=== PATIENT | female | born 1985 ===

== ENCOUNTER 2022-04-03 11:50 | Inpatient (IN) | payer BC, OTHER ==
[2022-04-03] MEDS ORDERED: OXYTOCIN 10 UNITS/ML VIAL ONE ×2 (12:02→12:54)
[2022-04-03] MEDS ORDERED: OXYTOCIN 20 UNITS in 0.9% NS 20 UNIT/1,000 ML INFUS.BAG IV ONE ×2 (12:18→12:54)
[2022-04-03] MEDS ORDERED: oxyCODONE HCL 5 MG TABLET ONE (12:56)
[2022-04-03] MEDS ORDERED: ACETAMINOPHEN 325 MG TABLET (FP) ONE (12:57)
[2022-04-03] MEDS ORDERED: WITCH HAZEL 50% (TUCKS) 40 PAD/JAR PAD TP PRN (13:15)
[2022-04-03] MEDS ORDERED: METHYLERGONOVINE MALEATE 0.2 MG/1 ML AMP IM PRN (13:15)
[2022-04-03] MEDS ORDERED: BENZOCAINE 28 GM HEMORRHOIDAL OINTMENT TP PRN (13:15)
[2022-04-03] MEDS ORDERED: BISACODYL 10 MG SUPP.RECT RC PRN (13:15)
[2022-04-03] MEDS ORDERED: OXYTOCIN 20 UNITS in 0.9% NS 20 UNIT/1,000 ML INFUS.BAG IV SCH (13:15)
[2022-04-03] MEDS ORDERED: ACETAMINOPHEN 325 MG TABLET (FP) PO PRN (13:15)
[2022-04-03] MEDS ORDERED: BENZOCAINE 20% 57 GM BOTTLE TP PRN (13:15)
[2022-04-03] MEDS: oxyCODONE HCL 5 MG TABLET PO PRN ×2 (13:19→19:30)
[2022-04-03 13:55] LABS: HEMATOCRIT 32.8 % (32.4-45.2); HEMOGLOBIN 10.9 GM/dL (10.7-15.3); MCH 29.9 pg (25.7-33.7); MCHC 33.2 g/dl (32.0-36.0); MEAN CELL VOLUME 90.1 fl (80-96); MEAN PLT VOLUME 7.7 fl (7.5-11.1); PLATELET COUNT 281 10^3/uL (134-434); RBC 3.65 M/mm3 (3.60-5.2); RDW 14.4 % (11.6-15.6); WHITE BLOOD COUNT 20.5 K/mm3 (4.0-10.0)
[2022-04-03 13:58] LABS: CALCIUM 8.6 mg/dL (8.5-10.1)
[2022-04-03 14:00] LABS: BLOOD UREA NITROGEN 6.4 mg/dL (7-18)
[2022-04-03 14:02] LABS: CREATININE 0.4 mg/dL (0.55-1.3)
[2022-04-03 14:03] LABS: INR 0.94 (0.83-1.09); PROTHROMBIN TIME (PATIENT) 10.8 SEC (9.7-13.0)
[2022-04-03 14:06] LABS: ACTIVATED PTT 26.1 SECONDS (25.2-36.5)
[2022-04-03 14:09] VITALS: BMI 29.6
[2022-04-03] MEDS ORDERED: CARBOPROST TROMETHAMINE 250 MCG/ML AMPUL IM ONE (14:15)
[2022-04-03 14:53] LABS: HIV INTERPRETATION NEGATIVE (NEGATIVE)
[2022-04-03 15:30] LABS: ANISOCYTOSIS 2+; MACROCYTOSIS 2+; OVALOCYTE 1+
[2022-04-03] MEDS ORDERED: IBUPROFEN 600 MG TABLET (FP) PO ONE (15:49)
[2022-04-03] MEDS: IBUPROFEN 600 MG TABLET (FP) PO PRN ×2 (15:50→23:56)
[2022-04-04] MEDS: oxyCODONE HCL 5 MG TABLET PO PRN ×3 (06:18→23:09)
[2022-04-04] MEDS: IBUPROFEN 600 MG TABLET (FP) PO PRN ×2 (08:04→19:19)
[2022-04-04 09:29] LABS: BASO % 0.3 % (0-2.0); EOS % 0.7 % (0-4.5); HEMATOCRIT 25.5 % (32.4-45.2); HEMOGLOBIN 8.5 GM/dL (10.7-15.3); LYMPH % 20.5 % (8-40); MCH 30.2 pg (25.7-33.7); MCHC 33.6 g/dl (32.0-36.0); MEAN CELL VOLUME 90.1 fl (80-96); MEAN PLT VOLUME 7.5 fl (7.5-11.1); MONO % 6.3 % (3.8-10.2); NEUT % 72.2 % (42.8-82.8); PLATELET COUNT 256 10^3/uL (134-434); RBC 2.83 M/mm3 (3.60-5.2); WHITE BLOOD COUNT 14.5 K/mm3 (4.0-10.0)
[2022-04-04] MEDS ORDERED: SENNOSIDES/DOCUSATE COMBO (SENNA PLUS) TABLET (UD) PO PRN (22:00)
[2022-04-05] MEDS: IBUPROFEN 600 MG TABLET (FP) PO PRN (00:58)
[2022-04-05] MEDS: oxyCODONE HCL 5 MG TABLET PO PRN (09:26)
[2022-04-05 10:54] VITALS: BP 130/85; PULSE 84; TEMP 98
== END 2022-04-05 13:18 | disposition home or self-care (01) | DRG 768 ==
LOC: JLDR 11:50 → J3W 16:10
PROVIDERS: ADMIT Obstetrics & Gynecology; ATTEND Obstetrics & Gynecology
PROC: 10E0XZZ Delivery of Products of Conception, External Approach (ICD-10-PCS; principal; 2022-04-03)
PROC: 0W3R7ZZ Control Bleeding in Genitourinary Tract, Via Natural or Artificial Opening (ICD-10-PCS; 2022-04-03)
DX: O16.4 Unspecified maternal hypertension, complicating childbirth (principal); Z37.0 Single live birth; Z3A.39 39 weeks gestation of pregnancy; O72.2 Delayed and secondary postpartum hemorrhage; O90.81 Anemia of the puerperium; D64.9 Anemia, unspecified; Z86.59 Personal history of other mental and behavioral disorders
CPT/HCPCS: 36415; 59409; 80048; 85025; 85610; 85730; 86780; 86850; 86900; 86901; 87389; C9803-CS; U0003; U0005